=== PATIENT | male | born 1985 | race Two or more races ===

== ENCOUNTER 2022-07-08 09:30 | Inpatient (IN) | payer MEDICAID ==
[~2022-07-08] VITALS: Ht 172.7 cm; Wt 89.8 kg
[2022-07-08] MEDS ORDERED: NALOXONE HCL 0.4 MG/ML 1ML VIAL IV PRN (09:45)
[2022-07-08] MEDS ORDERED: SODIUM CHLORIDE 0.9% 1,000 ML IV ONE (09:45)
[2022-07-08 11:16] LABS: BG BASE EXCESS -4.3 mmol/L (-2.0-2.0); BG DEOXYHEMOGLOBIN 14.5 % (0.0-5.0); BG FRACTION INSPIRED OXYGEN 21; BG HCO3 ACT 23.7 mmol/L (22.0-26.0); BG METHEMOGLOBIN 0.3 % (0.0-1.5); BG OXYGEN SATURATION 85.3 % (92.0-98.5); BG OXYHEMOGLOBIN 84.2 % (94.0-97.0); BG PCO2 54.2 mmHg (35.0-45.0); BG PH 7.258 (7.350-7.450); BG PO2 55.2 mmHg (75.0-100.0); BG TOTAL HEMOGLOBIN 16.3 g/dL (12.0-18.0); BG VENT MODE ROOM AIR
[2022-07-08] MEDS ORDERED: AMPICILLIN SOD/SULBACTAM NA 3 G in SODIUM CHLORIDE 0.9% 100 ML IV STA (12:55)
[2022-07-08 13:48] LABS: HEMATOCRIT. 46.1 % (42.0-52.0); HEMOGLOBIN. 15.3 g/dL (14.0-18.0); MEAN CORPUSCULAR HEMOGLOBIN 28.9 pg (28.0-32.0); MEAN CORPUSCULAR VOLUME 87.3 fL (80.0-94.0); PLATELET 302 x1000/uL (130-400); RED BLOOD CELL COUNT 5.27 mill/uL (4.7-6.1); RED CELL DISTRIBUTION WIDTH 12.6 % (11.6-14.6)
[2022-07-08 13:57] LABS: CHLORIDE 105 mEq/L (98-107)
[2022-07-08] MEDS ORDERED: DOCUSATE SODIUM 100MG CAPSULE PO PRN (14:00)
[2022-07-08] MEDS ORDERED: CEFTRIAXONE 1 G PREMIX 50 ML IV NR (14:00)
[2022-07-08] MEDS ORDERED: NALOXONE HCL 0.4MG/ML VIAL IV PRN (14:00)
[2022-07-08] MEDS ORDERED: HYDROCODONE/ACETAMINOPHEN 5/325MG TABLET PO PRN (14:00)
[2022-07-08] MEDS ORDERED: IPRATROPIUM/ALBUTEROL 0.5-3(2.5)MG/3ML NEB HHN PRN (14:00)
[2022-07-08] MEDS ORDERED: ENOXAPARIN 40MG/0.4ML SYR SUBCUT SCH (14:00)
[2022-07-08] MEDS ORDERED: AZITHROMYCIN 500MG/250ML 250 ML IV NR (14:00)
[2022-07-08] MEDS ORDERED: MAGNESIUM/ALUMINUM HYDROXIDE/SIMETHICONE 30ML UDC PO PRN (14:00)
[2022-07-08] MEDS ORDERED: GUAIFENESIN 200MG/10ML SUGAR FREE UDC PO PRN (14:00)
[2022-07-08] MEDS ORDERED: ONDANSETRON HCL 4MG/2ML INJ IV PRN (14:00)
[2022-07-08 14:12] LABS: CREATINE KINASE 165 IU/L (39-308); ETHANOL BLOOD < 10 mg/dL
[2022-07-08 14:15] LABS: PLATELET ESTIMATE NORMAL
[2022-07-08 14:16] LABS: CLARITY URINE CLEAR (CLEAR); COLOR URINE YELLOW (YELLOW); KETONES URINE NEGATIVE (NEGATIVE); LEUKOCYTE ESTERASE URINE NEGATIVE (NEGATIVE); NITRITE URINE NEGATIVE (NEGATIVE); OCCULT BLOOD URINE NEGATIVE (NEGATIVE); PH URINE 5.5 (4.5-8.0); PROTEIN URINE 2+ (NEGATIVE); SPECIFIC GRAVITY URINE 1.021 (1.005-1.030); UROBILINOGEN URINE 0.2 E.U./dL (0.2-1.0)
[2022-07-08 14:33] LABS: *AMPHETAMINES SCREEN URINE NEGATIVE (NEGATIVE); *BARBITURATES SCREEN URINE NEGATIVE (NEGATIVE); *BENZODIAZEPINES SCREEN URINE NEGATIVE (NEGATIVE); *COCAINE SCREEN URINE NEGATIVE (NEGATIVE); CANNABINOID URINE SCREEN NEGATIVE (NEGATIVE); METHADONE URINE SCREEN NEGATIVE (NEGATIVE); OPIATES URINE SCREEN NEGATIVE (NEGATIVE); PHENCYCLIDINE URINE SCREEN NEGATIVE (NEGATIVE)
[2022-07-08 16:00] VITALS: BP 125/80
[2022-07-08 18:00] VITALS: BP 135/75
[2022-07-08] MEDS: PANTOPRAZOLE SODIUM 40 MG/VIAL IV SCH (18:07)
[2022-07-08] MEDS: ENOXAPARIN 30MG/0.3ML SYR SUBCUT SCH (18:07)
[2022-07-08 20:03] VITALS: BP 138/79
[2022-07-08] MEDS ORDERED: ALBUTEROL (0.083%) 2.5MG/3ML NEB HHN PRN (20:30)
[2022-07-08] MEDS ORDERED: IPRATROPIUM BROMIDE (0.02%) 0.5MG/2.5ML NEB HHN PRN (20:30)
[2022-07-09] VITALS (72 sets, daily range): BP systolic 94–168; BP diastolic 30–101
[2022-07-09] MEDS ORDERED: PROPOFOL 10MG/ML 100ML 100 ML IV PRN (03:30)
[2022-07-09] MEDS ORDERED: LORAZEPAM 2MG/ML CPJ IV NR (03:30)
[2022-07-09] MEDS ORDERED: LORAZEPAM 2MG/ML CPJ IV PRN ×2 (05:00→07:15)
[2022-07-09 05:46] LABS: BG BASE EXCESS -4.5 mmol/L (-2.0-2.0); BG CARBOXYHEMOGLOBIN 0.6 % (0.5-1.5); BG DEOXYHEMOGLOBIN 0.4 % (0.0-5.0); BG FRACTION INSPIRED OXYGEN 100; BG HCO3 ACT 21.7 mmol/L (22.0-26.0); BG METHEMOGLOBIN 0.4 % (0.0-1.5); BG OXYGEN SATURATION 99.6 % (92.0-98.5); BG OXYHEMOGLOBIN 98.6 % (94.0-97.0); BG PCO2 44.1 mmHg (35.0-45.0); BG PO2 449.2 mmHg (75.0-100.0); BG SAMPLE SITE RIGHT RADIAL; BG VENT MODE VENT - AC
[2022-07-09 06:35] LABS: *AMPHETAMINES SCREEN URINE NEGATIVE (NEGATIVE); *BARBITURATES SCREEN URINE NEGATIVE (NEGATIVE); *BENZODIAZEPINES SCREEN URINE NEGATIVE (NEGATIVE); *COCAINE SCREEN URINE NEGATIVE (NEGATIVE); CANNABINOID URINE SCREEN NEGATIVE (NEGATIVE); METHADONE URINE SCREEN NEGATIVE (NEGATIVE); OPIATES URINE SCREEN NEGATIVE (NEGATIVE); PHENCYCLIDINE URINE SCREEN NEGATIVE (NEGATIVE)
[2022-07-09] MEDS ORDERED: MIDAZOLAM HCL 2 MG/2 ML VIAL IV SCH (07:15)
[2022-07-09] MEDS ORDERED: LEVETIRACETAM 500 MG in SODIUM CHLORIDE 0.9% 100 ML IV SCH (07:30)
[2022-07-09] MEDS ORDERED: ETOMIDATE 2MG/ML 10ML VIAL IV ONE (07:53)
[2022-07-09] MEDS ORDERED: LIDOCAINE HCL 1% 30ML VIAL (10MG/ML) ONE (08:05)
[2022-07-09] MEDS ORDERED: NALOXONE HCL 0.4 MG/ML 1ML VIAL ONE (08:22)
[2022-07-09] MEDS ORDERED: EPINEPHRINE 0.1MG/ML (1:10,000) 10ML SYR ONE (08:22)
[2022-07-09] MEDS: PANTOPRAZOLE SODIUM 40 MG/VIAL IV SCH (08:56)
[2022-07-09] MEDS: LEVETIRACETAM 500MG PREMIX 100 ML IV SCH ×2 (08:56→21:30)
[2022-07-09] MEDS: ENOXAPARIN 30MG/0.3ML SYR SUBCUT SCH ×2 (08:57→17:40)
[2022-07-09] MEDS: PROPOFOL 10MG/ML 100ML 100 ML IV PRN ×2 (10:44→17:40)
[2022-07-09] MEDS: LACTATED RINGERS 1,000 ML IV SCH ×2 (12:07→17:41)
[2022-07-09] MEDS: CEFTRIAXONE 1,000 MG in DEXTROSE 5% WATER 50 ML IV SCH (12:07)
[2022-07-09] MEDS: LORAZEPAM 2MG/ML CPJ IV PRN ×2 (12:42→17:51)
[2022-07-09 13:12] LABS: HEMATOCRIT. 43.8 % (42.0-52.0); HEMOGLOBIN. 14.7 g/dL (14.0-18.0); MEAN CORPUSCULAR HEMOGLOBIN 29.3 pg (28.0-32.0); MEAN CORPUSCULAR VOLUME 87.7 fL (80.0-94.0); MEAN PLATELET VOLUME 8.7 fl (7.4-10.4); PLATELET 241 x1000/uL (130-400)
[2022-07-09 13:27] LABS: CHLORIDE 101 mEq/L (98-107)
[2022-07-09 13:31] LABS: PLATELET ESTIMATE NORMAL
[2022-07-09 13:37] LABS: HDL CHOLESTEROL 50 mg/dL (40-59); LDL CHOLESTEROL 89 mg/dL (5-100)
[2022-07-09] MEDS: AZITHROMYCIN 500MG in DEXTROSE 5% WATER 250ML IV SCH (13:51)
[2022-07-09] MEDS ORDERED: IOHEXOL-350 100 ML BOTTLE ONE (14:06)
[2022-07-09] MEDS: IPRATROPIUM/ALBUTEROL 0.5-3(2.5)MG/3ML NEB HHN SCH ×2 (14:06→20:34)
[2022-07-09 14:51] LABS: CLARITY URINE TURBID (CLEAR); COLOR URINE ORANGE (YELLOW); KETONES URINE TRACE (NEGATIVE); LEUKOCYTE ESTERASE URINE 1+ (NEGATIVE); NITRITE URINE NEGATIVE (NEGATIVE); OCCULT BLOOD URINE 3+ (NEGATIVE); PH URINE 5.5 (4.5-8.0); PROTEIN URINE TRACE (NEGATIVE); SPECIFIC GRAVITY URINE 1.025 (1.005-1.030)
[2022-07-09] MEDS: LACTULOSE 20G/30ML UDC PO SCH ×2 (14:56→22:18)
[2022-07-10] VITALS (89 sets, daily range): BP systolic 112–170; BP diastolic 57–107
[2022-07-10] MEDS: LACTATED RINGERS 1,000 ML IV SCH ×3 (00:35→18:10)
[2022-07-10] MEDS: IPRATROPIUM/ALBUTEROL 0.5-3(2.5)MG/3ML NEB HHN SCH ×4 (02:10→20:06)
[2022-07-10] MEDS: PROPOFOL 10MG/ML 100ML 100 ML IV PRN ×3 (03:48→18:51)
[2022-07-10] MEDS: LACTULOSE 20G/30ML UDC PO SCH ×3 (06:07→21:19)
[2022-07-10] MEDS: ENOXAPARIN 30MG/0.3ML SYR SUBCUT SCH ×2 (06:09→18:09)
[2022-07-10 07:04] LABS: CHLORIDE 105 mEq/L (98-107)
[2022-07-10 07:15] LABS: PHOSPHORUS 2.1 mg/dL (2.5-4.9)
[2022-07-10 08:39] LABS: BG BASE EXCESS 0.8 mmol/L (-2.0-2.0); BG CARBOXYHEMOGLOBIN 0.7 % (0.5-1.5); BG DEOXYHEMOGLOBIN 2.8 % (0.0-5.0); BG FRACTION INSPIRED OXYGEN 40; BG HCO3 ACT 23.7 mmol/L (22.0-26.0); BG METHEMOGLOBIN 0.2 % (0.0-1.5); BG OXYGEN SATURATION 97.2 % (92.0-98.5); BG OXYHEMOGLOBIN 96.3 % (94.0-97.0); BG PCO2 32.8 mmHg (35.0-45.0); BG PH 7.476 (7.350-7.450); BG PO2 90.7 mmHg (75.0-100.0); BG SAMPLE SITE RIGHT RADIAL; BG TOTAL HEMOGLOBIN 13.8 g/dL (12.0-18.0); BG VENT MODE VENT - AC
[2022-07-10] MEDS: LEVETIRACETAM 500MG PREMIX 100 ML IV SCH ×2 (09:44→21:19)
[2022-07-10] MEDS: PANTOPRAZOLE SODIUM 40 MG/VIAL IV SCH (09:44)
[2022-07-10 10:04] LABS: BASOPHILS % 0.4 % (0.0-2.0); EOSINOPHILS % 0.9 % (0.0-5.0); HEMATOCRIT. 38.5 % (42.0-52.0); LYMPHOCYTES % 8.3 % (20.0-50.0); MEAN CORPUSCULAR HEMOGLOBIN 29.3 pg (28.0-32.0); MEAN CORPUSCULAR VOLUME 86.8 fL (80.0-94.0); MEAN PLATELET VOLUME 9.4 fl (7.4-10.4); MONOCYTES % 5.4 % (2.0-8.0); PLATELET 229 x1000/uL (130-400); RED BLOOD CELL COUNT 4.43 mill/uL (4.7-6.1)
[2022-07-10] MEDS: CEFTRIAXONE 1,000 MG in DEXTROSE 5% WATER 50 ML IV SCH (11:46)
[2022-07-10] MEDS: AZITHROMYCIN 500MG in DEXTROSE 5% WATER 250ML IV SCH (12:54)
[2022-07-10] MEDS ORDERED: METRONIDAZOLE 50MG/ML 1ML ORAL SYR(NEO) PO SCH (13:00)
[2022-07-10] MEDS: METRONIDAZOLE 500MG TABLET PO SCH ×2 (15:51→21:19)
[2022-07-10] MEDS: ACETAMINOPHEN 325MG TABLET PO PRN (15:59)
[2022-07-10] MEDS: CEFEPIME 2,000 MG in DEXT 5% WATER 100 ML IV SCH (18:09)
[2022-07-11] VITALS (54 sets, daily range): BP systolic 137–206; BP diastolic 64–117
[2022-07-11] MEDS: IPRATROPIUM/ALBUTEROL 0.5-3(2.5)MG/3ML NEB HHN SCH ×3 (01:59→20:13)
[2022-07-11] MEDS: PROPOFOL 10MG/ML 100ML 100 ML IV PRN ×2 (02:53→08:26)
[2022-07-11] MEDS: CEFEPIME 2,000 MG in DEXT 5% WATER 100 ML IV SCH (05:32)
[2022-07-11] MEDS: LACTULOSE 20G/30ML UDC PO SCH ×3 (05:32→21:06)
[2022-07-11] MEDS: ENOXAPARIN 30MG/0.3ML SYR SUBCUT SCH ×2 (05:33→17:17)
[2022-07-11] MEDS: METRONIDAZOLE 500MG TABLET PO SCH (05:33)
[2022-07-11] MEDS: ACETAMINOPHEN 325MG TABLET PO PRN ×4 (05:33→21:20)
[2022-07-11 05:35] LABS: HEMATOCRIT. 39.3 % (42.0-52.0); HEMOGLOBIN. 13.4 g/dL (14.0-18.0); MEAN CORPUSCULAR HEMOGLOBIN 29.8 pg (28.0-32.0); MEAN CORPUSCULAR VOLUME 87.6 fL (80.0-94.0); MEAN PLATELET VOLUME 8.6 fl (7.4-10.4); PLATELET 250 x1000/uL (130-400); RED BLOOD CELL COUNT 4.48 mill/uL (4.7-6.1); RED CELL DISTRIBUTION WIDTH 12.7 % (11.6-14.6)
[2022-07-11] MEDS: CLONIDINE 0.1MG TABLET PO PRN ×2 (06:44→21:06)
[2022-07-11 06:50] LABS: CHLORIDE 101 mEq/L (98-107)
[2022-07-11] MEDS ORDERED: LABETALOL 5MG/ML SYR 20 MG/4 ML SYRINGE IV NR (06:57)
[2022-07-11] MEDS ORDERED: IBUPROFEN 400MG TABLET PO NR (07:00)
[2022-07-11] MEDS: LACTATED RINGERS 1,000 ML IV SCH ×2 (07:22→22:12)
[2022-07-11] MEDS: PANTOPRAZOLE SODIUM 40 MG/VIAL IV SCH (08:26)
[2022-07-11] MEDS ORDERED: KCL 20MEQ/100ML PREMIX 100 ML IV NR (09:00)
[2022-07-11 09:02] LABS: BG BASE EXCESS 0.2 mmol/L (-2.0-2.0); BG CARBOXYHEMOGLOBIN 0.3 % (0.5-1.5); BG DEOXYHEMOGLOBIN 4.7 % (0.0-5.0); BG FRACTION INSPIRED OXYGEN 40; BG METHEMOGLOBIN 0.1 % (0.0-1.5); BG OXYGEN SATURATION 95.3 % (92.0-98.5); BG OXYHEMOGLOBIN 94.9 % (94.0-97.0); BG PCO2 32.1 mmHg (35.0-45.0); BG PH 7.474 (7.350-7.450); BG PO2 75.9 mmHg (75.0-100.0); BG SAMPLE SITE RIGHT RADIAL; BG TOTAL HEMOGLOBIN 13.4 g/dL (12.0-18.0); BG VENT MODE VENT - AC
[2022-07-11] MEDS: LEVETIRACETAM 500MG PREMIX 100 ML IV SCH ×2 (10:06→21:06)
[2022-07-11] MEDS ORDERED: MIDAZOLAM 100MG/100ML PMX 100 ML IV PRN (11:00)
[2022-07-11] MEDS: AMLODIPINE 5MG TABLET PO SCH (12:17)
[2022-07-11 12:20] LABS: PHOSPHORUS 2.1 mg/dL (2.5-4.9)
[2022-07-11] MEDS: AZITHROMYCIN 500MG in DEXTROSE 5% WATER 250ML IV SCH (12:24)
[2022-07-11] MEDS: PIPERACILLIN/TAZOBACTAM 3.375 G in DEXTROSE 5% WATER 50 ML IV SCH ×2 (13:28→21:05)
[2022-07-11] MEDS ORDERED: THIAMINE HCL 100 MG in SODIUM CHLORIDE 0.9% 49 ML IV NR (13:30)
[2022-07-11 14:28] LABS: PLATELET ESTIMATE NORMAL
[2022-07-11 15:50] LABS: CLARITY URINE CLEAR (CLEAR); COLOR URINE YELLOW (YELLOW); KETONES URINE NEGATIVE (NEGATIVE); LEUKOCYTE ESTERASE URINE NEGATIVE (NEGATIVE); NITRITE URINE NEGATIVE (NEGATIVE); OCCULT BLOOD URINE TRACE (NEGATIVE); PH URINE 7.5 (4.5-8.0); PROTEIN URINE NEGATIVE (NEGATIVE); SPECIFIC GRAVITY URINE 1.014 (1.005-1.030)
[2022-07-11] MEDS ORDERED: PROPOFOL 10MG/ML 100ML 100 ML IV PRN (16:15)
[2022-07-11 16:55] LABS: BASOPHILS % 0.6 % (0.0-2.0); HEMATOCRIT. 39.6 % (42.0-52.0); HEMOGLOBIN. 13.4 g/dL (14.0-18.0); LYMPHOCYTES % 9.7 % (20.0-50.0); MEAN CORPUSCULAR HEMOGLOBIN 29.5 pg (28.0-32.0); MEAN PLATELET VOLUME 8.9 fl (7.4-10.4); MONOCYTES % 8.7 % (2.0-8.0); PLATELET 242 x1000/uL (130-400); RED BLOOD CELL COUNT 4.55 mill/uL (4.7-6.1); RED CELL DISTRIBUTION WIDTH 12.9 % (11.6-14.6)
[2022-07-11] MEDS: MIDAZOLAM HCL 100 MG in SODIUM CHLORIDE 0.9% 100 ML IV PRN (17:14)
[2022-07-11 17:20] LABS: CHLORIDE 114 mEq/L (98-107)
[2022-07-11 17:28] LABS: PHOSPHORUS 2.9 mg/dL (2.5-4.9)
[2022-07-11] MEDS ORDERED: SODIUM PHOS,M-BASIC-D-BASIC 15 MM in DEXT 5% WATER 245 ML IV NR (17:30)
[2022-07-11] MEDS: HYDRALAZINE 20MG/ML VIAL IV PRN (19:28)
[2022-07-12] VITALS (53 sets, daily range): BP systolic 85–206; BP diastolic 33–120
[2022-07-12] MEDS: HYDRALAZINE 20MG/ML VIAL IV PRN (00:09)
[2022-07-12] MEDS: IPRATROPIUM/ALBUTEROL 0.5-3(2.5)MG/3ML NEB HHN SCH ×4 (01:41→19:50)
[2022-07-12] MEDS: LABETALOL 5MG/ML SYR 20 MG/4 ML SYRINGE IV PRN (01:57)
[2022-07-12] MEDS: ENOXAPARIN 30MG/0.3ML SYR SUBCUT SCH ×2 (05:44→17:43)
[2022-07-12] MEDS: LACTULOSE 20G/30ML UDC PO SCH (05:44)
[2022-07-12] MEDS: PIPERACILLIN/TAZOBACTAM 3.375 G in DEXTROSE 5% WATER 50 ML IV SCH ×3 (05:44→22:13)
[2022-07-12 06:03] LABS: BASOPHILS % 0.1 % (0.0-2.0); HEMATOCRIT. 41.5 % (42.0-52.0); HEMOGLOBIN. 14.2 g/dL (14.0-18.0); LYMPHOCYTES % 8.6 % (20.0-50.0); MEAN CORPUSCULAR HEMOGLOBIN 29.6 pg (28.0-32.0); MEAN CORPUSCULAR VOLUME 86.7 fL (80.0-94.0); MEAN PLATELET VOLUME 8.3 fl (7.4-10.4); MONOCYTES % 8.9 % (2.0-8.0); NEUTROPHILS % 82.4 % (40.0-76.0); PLATELET 289 x1000/uL (130-400); RED BLOOD CELL COUNT 4.78 mill/uL (4.7-6.1); RED CELL DISTRIBUTION WIDTH 13.1 % (11.6-14.6)
[2022-07-12 06:32] LABS: CHLORIDE 109 mEq/L (98-107)
[2022-07-12] MEDS: MIDAZOLAM HCL 100 MG in SODIUM CHLORIDE 0.9% 100 ML IV PRN (06:41)
[2022-07-12] MEDS: AMLODIPINE 5MG TABLET PO SCH (09:00)
[2022-07-12] MEDS: LEVETIRACETAM 500MG PREMIX 100 ML IV SCH ×2 (09:09→22:13)
[2022-07-12] MEDS: PANTOPRAZOLE SODIUM 40 MG/VIAL IV SCH (09:09)
[2022-07-12] MEDS: KCL 20MEQ/100ML PREMIX 100 ML IV SCH ×2 (09:12→11:00)
[2022-07-12 09:14] LABS: BG BASE EXCESS -0.3 mmol/L (-2.0-2.0); BG CARBOXYHEMOGLOBIN 0.7 % (0.5-1.5); BG DEOXYHEMOGLOBIN 1.4 % (0.0-5.0); BG FRACTION INSPIRED OXYGEN 40; BG HCO3 ACT 21.2 mmol/L (22.0-26.0); BG METHEMOGLOBIN 0.3 % (0.0-1.5); BG OXYGEN SATURATION 98.6 % (92.0-98.5); BG OXYHEMOGLOBIN 97.6 % (94.0-97.0); BG PCO2 26.8 mmHg (35.0-45.0); BG PH 7.517 (7.350-7.450); BG PO2 133.3 mmHg (75.0-100.0); BG SAMPLE SITE RIGHT BRACHIAL; BG TOTAL HEMOGLOBIN 13.4 g/dL (12.0-18.0); BG VENT MODE VENT - AC
[2022-07-12] MEDS: NOREPINEPHRINE 8 MG in DEXT 5% WATER 242 ML IV PRN (14:09)
[2022-07-12] MEDS: AZITHROMYCIN 500MG in DEXTROSE 5% WATER 250ML IV SCH (15:16)
[2022-07-12] MEDS: LACTATED RINGERS 1,000 ML IV SCH ×2 (15:16→22:14)
[2022-07-13] VITALS (94 sets, daily range): BP systolic 82–128; BP diastolic 38–84
[2022-07-13] MEDS: IPRATROPIUM/ALBUTEROL 0.5-3(2.5)MG/3ML NEB HHN SCH ×3 (02:03→20:36)
[2022-07-13] MEDS: NOREPINEPHRINE 8 MG in DEXT 5% WATER 242 ML IV PRN ×2 (04:47→18:25)
[2022-07-13 05:43] LABS: BASOPHILS % 0.6 % (0.0-2.0); EOSINOPHILS % 2.6 % (0.0-5.0); HEMOGLOBIN. 15.1 g/dL (14.0-18.0); LYMPHOCYTES % 9.7 % (20.0-50.0); MEAN CORPUSCULAR HEMOGLOBIN 29.9 pg (28.0-32.0); MEAN CORPUSCULAR VOLUME 88.9 fL (80.0-94.0); MEAN PLATELET VOLUME 8.2 fl (7.4-10.4); MONOCYTES % 9.6 % (2.0-8.0); NEUTROPHILS % 77.5 % (40.0-76.0); PLATELET 316 x1000/uL (130-400); RED BLOOD CELL COUNT 5.06 mill/uL (4.7-6.1); RED CELL DISTRIBUTION WIDTH 13.2 % (11.6-14.6)
[2022-07-13] MEDS: PIPERACILLIN/TAZOBACTAM 3.375 G in DEXTROSE 5% WATER 50 ML IV SCH ×3 (07:00→21:00)
[2022-07-13] MEDS: ENOXAPARIN 30MG/0.3ML SYR SUBCUT SCH ×2 (07:00→18:21)
[2022-07-13 08:09] LABS: *CREATININE RANDOM URINE 56.5 mg/dL (Not Estab.); MICROALBUMIN RANDOM URINE 3.4 ug/mL (Not Estab.)
[2022-07-13] MEDS: PANTOPRAZOLE SODIUM 40 MG/VIAL IV SCH (09:21)
[2022-07-13] MEDS: LEVETIRACETAM 500MG PREMIX 100 ML IV SCH ×2 (09:21→21:00)
[2022-07-13 09:55] LABS: CHLORIDE 135 mEq/L (98-107)
[2022-07-13 10:02] LABS: PHOSPHORUS 3.6 mg/dL (2.5-4.9)
[2022-07-13] MEDS ORDERED: KCL 20MEQ/100ML PREMIX 100 ML IV ONE (10:45)
[2022-07-13] MEDS: KCL 20MEQ/100ML PREMIX 100 ML IV SCH ×5 (11:00→22:04)
[2022-07-13] MEDS: LACTATED RINGERS 1,000 ML IV SCH (11:23)
[2022-07-13 12:09] LABS: BG CARBOXYHEMOGLOBIN 0.3 % (0.5-1.5); BG DEOXYHEMOGLOBIN 3.2 % (0.0-5.0); BG FRACTION INSPIRED OXYGEN 35; BG METHEMOGLOBIN 0.3 % (0.0-1.5); BG OXYGEN SATURATION 96.8 % (92.0-98.5); BG OXYHEMOGLOBIN 96.2 % (94.0-97.0); BG PCO2 49.7 mmHg (35.0-45.0); BG PH 7.302 (7.350-7.450); BG PO2 98.8 mmHg (75.0-100.0); BG SAMPLE SITE RIGHT RADIAL; BG TOTAL HEMOGLOBIN 17.4 g/dL (12.0-18.0); BG VENT MODE VENT - AC
[2022-07-13 16:43] LABS: CHLORIDE 140 mEq/L (98-107)
[2022-07-13] MEDS ORDERED: DEXT 5%/0.45% NACL 500ML 1,000 ML IV ONE (17:15)
[2022-07-13] MEDS ORDERED: KCL 20MEQ/100ML PREMIX 100 ML IV SCH (17:30)
[2022-07-13 18:50] LABS: HEMATOCRIT 47.5 % (42.0-52.0); HEMOGLOBIN 15.3 g/dL (14.0-18.0); MEAN CORPUSCULAR HEMOGLOBIN 28.8 pg (28.0-32.0); MEAN CORPUSCULAR VOLUME 89.2 fL (80.0-94.0); PLATELET 327 x1000/uL (130-400); RED BLOOD CELL COUNT 5.32 mill/uL (4.7-6.1); RED CELL DISTRIBUTION WIDTH 13.8 % (11.6-14.6)
[2022-07-13 19:09] LABS: T4 FREE 0.9 ng/dL (0.76-1.46)
[2022-07-13 20:34] LABS: CHLORIDE 141 mEq/L (98-107)
[2022-07-14] VITALS (97 sets, daily range): BP systolic 76–148; BP diastolic 38–85
[2022-07-14] MEDS: KCL 20MEQ/100ML PREMIX 100 ML IV SCH ×2 (00:07→02:39)
[2022-07-14] MEDS: IPRATROPIUM/ALBUTEROL 0.5-3(2.5)MG/3ML NEB HHN SCH ×3 (01:22→12:46)
[2022-07-14 05:41] LABS: BASOPHILS % 0.3 % (0.0-2.0); EOSINOPHILS % 5.7 % (0.0-5.0); HEMATOCRIT. 44.5 % (42.0-52.0); HEMOGLOBIN. 14.6 g/dL (14.0-18.0); LYMPHOCYTES % 11.9 % (20.0-50.0); MEAN CORPUSCULAR HEMOGLOBIN 29.2 pg (28.0-32.0); MEAN CORPUSCULAR VOLUME 89.3 fL (80.0-94.0); MEAN PLATELET VOLUME 8.6 fl (7.4-10.4); MONOCYTES % 9.5 % (2.0-8.0); NEUTROPHILS % 72.6 % (40.0-76.0); PLATELET 300 x1000/uL (130-400); RED BLOOD CELL COUNT 4.98 mill/uL (4.7-6.1); RED CELL DISTRIBUTION WIDTH 13.8 % (11.6-14.6)
[2022-07-14] MEDS: PIPERACILLIN/TAZOBACTAM 3.375 G in DEXTROSE 5% WATER 50 ML IV SCH ×3 (05:54→22:49)
[2022-07-14] MEDS: ENOXAPARIN 30MG/0.3ML SYR SUBCUT SCH (05:54)
[2022-07-14] MEDS: NOREPINEPHRINE 8 MG in DEXT 5% WATER 242 ML IV PRN ×3 (05:56→20:50)
[2022-07-14 06:07] LABS: PHOSPHORUS 5.1 mg/dL (2.5-4.9)
[2022-07-14] MEDS ORDERED: DEXT 5%/0.45% NACL 1000ML 1,000 ML IV SCH (06:35)
[2022-07-14] MEDS: LEVETIRACETAM 500MG PREMIX 100 ML IV SCH ×2 (08:38→20:50)
[2022-07-14] MEDS: DEXTROSE 5% WATER 1,000 ML IV SCH ×4 (08:38→23:50)
[2022-07-14] MEDS: PANTOPRAZOLE SODIUM 40 MG/VIAL IV SCH (08:38)
[2022-07-14 09:14] LABS: BG BASE EXCESS -6.2 mmol/L (-2.0-2.0); BG CARBOXYHEMOGLOBIN 0.3 % (0.5-1.5); BG DEOXYHEMOGLOBIN 4.4 % (0.0-5.0); BG FRACTION INSPIRED OXYGEN 30; BG HCO3 ACT 22.6 mmol/L (22.0-26.0); BG METHEMOGLOBIN 0.3 % (0.0-1.5); BG OXYGEN SATURATION 95.6 % (92.0-98.5); BG PCO2 58.4 mmHg (35.0-45.0); BG PH 7.206 (7.350-7.450); BG PO2 91.4 mmHg (75.0-100.0); BG SAMPLE SITE RIGHT RADIAL; BG TOTAL HEMOGLOBIN 14.9 g/dL (12.0-18.0); BG TOTAL RESPIRATORY RATE 16 b/min; BG VENT MODE VENT - AC
[2022-07-14] MEDS: DESMOPRESSIN ACETATE 4MCG/ML AMP IV SCH ×3 (10:45→22:51)
[2022-07-14 11:46] LABS: BG BASE EXCESS -4.8 mmol/L (-2.0-2.0); BG CARBOXYHEMOGLOBIN 0.9 % (0.5-1.5); BG DEOXYHEMOGLOBIN 3.9 % (0.0-5.0); BG FRACTION INSPIRED OXYGEN 30; BG HCO3 ACT 22.3 mmol/L (22.0-26.0); BG METHEMOGLOBIN 0.4 % (0.0-1.5); BG OXYHEMOGLOBIN 94.8 % (94.0-97.0); BG PCO2 49.2 mmHg (35.0-45.0); BG PH 7.275 (7.350-7.450); BG PO2 86.7 mmHg (75.0-100.0); BG SAMPLE SITE RIGHT RADIAL; BG TOTAL HEMOGLOBIN 14.1 g/dL (12.0-18.0); BG VENT MODE VENT - AC
[2022-07-14 12:29] LABS: BG CARBOXYHEMOGLOBIN 0.6 % (0.5-1.5); BG DEOXYHEMOGLOBIN 0.7 % (0.0-5.0); BG FRACTION INSPIRED OXYGEN 100; BG METHEMOGLOBIN 0.3 % (0.0-1.5); BG OXYGEN SATURATION 99.3 % (92.0-98.5); BG OXYHEMOGLOBIN 98.4 % (94.0-97.0); BG PCO2 43.6 mmHg (35.0-45.0); BG PH 7.321 (7.350-7.450); BG PO2 349.7 mmHg (75.0-100.0); BG SAMPLE SITE LEFT RADIAL; BG TOTAL HEMOGLOBIN 13.9 g/dL (12.0-18.0); BG VENT MODE VENT - AC
[2022-07-14] MEDS ORDERED: DESMOPRESSIN ACETATE IVPB 1 MCG in SODIUM CHLORIDE 0.9% 50 ML IV SCH (14:00)
[2022-07-15] VITALS (95 sets, daily range): BP systolic 93–213; BP diastolic 46–120
[2022-07-15 06:37] LABS: BASOPHILS % 0.4 % (0.0-2.0); HEMATOCRIT. 37.6 % (42.0-52.0); HEMOGLOBIN. 12.6 g/dL (14.0-18.0); LYMPHOCYTES % 13.2 % (20.0-50.0); MEAN CORPUSCULAR HEMOGLOBIN 29.4 pg (28.0-32.0); MEAN CORPUSCULAR VOLUME 88.1 fL (80.0-94.0); MONOCYTES % 8.8 % (2.0-8.0); NEUTROPHILS % 70.6 % (40.0-76.0); PLATELET 250 x1000/uL (130-400); RED BLOOD CELL COUNT 4.26 mill/uL (4.7-6.1); RED CELL DISTRIBUTION WIDTH 13.6 % (11.6-14.6)
[2022-07-15] MEDS: PIPERACILLIN/TAZOBACTAM 3.375 G in DEXTROSE 5% WATER 50 ML IV SCH ×3 (06:37→21:27)
[2022-07-15] MEDS: ENOXAPARIN 30MG/0.3ML SYR SUBCUT SCH (06:38)
[2022-07-15] MEDS: DESMOPRESSIN ACETATE 4MCG/ML AMP IV SCH ×3 (06:38→22:16)
[2022-07-15] MEDS: NOREPINEPHRINE 8 MG in DEXT 5% WATER 242 ML IV PRN ×2 (06:39→21:27)
[2022-07-15] MEDS: DEXTROSE 5% WATER 1,000 ML IV SCH ×3 (06:48→22:11)
[2022-07-15 08:52] LABS: BG BASE EXCESS -0.5 mmol/L (-2.0-2.0); BG CARBOXYHEMOGLOBIN 0.4 % (0.5-1.5); BG DEOXYHEMOGLOBIN 2.1 % (0.0-5.0); BG FRACTION INSPIRED OXYGEN 40; BG HCO3 ACT 23.7 mmol/L (22.0-26.0); BG METHEMOGLOBIN 0.3 % (0.0-1.5); BG OXYGEN SATURATION 97.9 % (92.0-98.5); BG OXYHEMOGLOBIN 97.2 % (94.0-97.0); BG PCO2 37.4 mmHg (35.0-45.0); BG PH 7.419 (7.350-7.450); BG PO2 111.6 mmHg (75.0-100.0); BG SAMPLE SITE RIGHT RADIAL; BG TOTAL HEMOGLOBIN 13.3 g/dL (12.0-18.0); BG TOTAL RESPIRATORY RATE 24 b/min; BG VENT MODE VENT - AC
[2022-07-15] MEDS: PANTOPRAZOLE SODIUM 40 MG/VIAL IV SCH (09:00)
[2022-07-15] MEDS: LEVETIRACETAM 500MG PREMIX 100 ML IV SCH ×2 (10:29→21:27)
[2022-07-15] MEDS ORDERED: IPRATROPIUM/ALBUTEROL 0.5-3(2.5)MG/3ML NEB HHN PRN (13:15)
[2022-07-15] MEDS ORDERED: DEXTROSE 5% WATER 1,000 ML IV SCH (16:45)
[2022-07-15] MEDS: IPRATROPIUM/ALBUTEROL 0.5-3(2.5)MG/3ML NEB HHN SCH (20:04)
[2022-07-16] VITALS (95 sets, daily range): BP systolic 94–202; BP diastolic 49–133
[2022-07-16] MEDS: IPRATROPIUM/ALBUTEROL 0.5-3(2.5)MG/3ML NEB HHN SCH ×4 (01:21→19:50)
[2022-07-16] MEDS: DEXTROSE 5% WATER 1,000 ML IV SCH ×4 (01:57→18:30)
[2022-07-16] MEDS: PIPERACILLIN/TAZOBACTAM 3.375 G in DEXTROSE 5% WATER 50 ML IV SCH ×3 (05:28→21:02)
[2022-07-16] MEDS: DESMOPRESSIN ACETATE 4MCG/ML AMP IV SCH ×3 (05:29→20:22)
[2022-07-16] MEDS: ENOXAPARIN 30MG/0.3ML SYR SUBCUT SCH (05:30)
[2022-07-16 05:44] LABS: BASOPHILS % 0.2 % (0.0-2.0); HEMATOCRIT. 35.8 % (42.0-52.0); MEAN CORPUSCULAR HEMOGLOBIN 29.3 pg (28.0-32.0); MEAN CORPUSCULAR VOLUME 87.2 fL (80.0-94.0); MEAN PLATELET VOLUME 8.2 fl (7.4-10.4); MONOCYTES % 5.5 % (2.0-8.0); NEUTROPHILS % 78.3 % (40.0-76.0); PLATELET 201 x1000/uL (130-400); RED CELL DISTRIBUTION WIDTH 13.2 % (11.6-14.6)
[2022-07-16 06:04] LABS: PHOSPHORUS 4.3 mg/dL (2.5-4.9)
[2022-07-16] MEDS ORDERED: POTASSIUM CHLORIDE 20MEQ/PACKET NG NR (08:00)
[2022-07-16] MEDS ORDERED: INSULIN REGULAR (HUMULIN R) 300UNITS/3ML VIAL IV NR (08:30)
[2022-07-16] MEDS: PANTOPRAZOLE SODIUM 40 MG/VIAL IV SCH (08:52)
[2022-07-16] MEDS: LEVETIRACETAM 500MG PREMIX 100 ML IV SCH ×2 (08:52→20:22)
[2022-07-16 09:10] LABS: BARBITURATE SCREEN Negative ug/mL (Cutoff:0.1); OPIATES SCREEN Negative ng/mL (Cutoff:5); PHENCYCLIDINE SCREEN Negative ng/mL (Cutoff:8)
[2022-07-16] MEDS: NOREPINEPHRINE 8 MG in DEXT 5% WATER 242 ML IV PRN (09:41)
[2022-07-16 10:06] LABS: BG BASE EXCESS -0.5 mmol/L (-2.0-2.0); BG CARBOXYHEMOGLOBIN 0.3 % (0.5-1.5); BG DEOXYHEMOGLOBIN 1.9 % (0.0-5.0); BG FRACTION INSPIRED OXYGEN 40; BG HCO3 ACT 23.5 mmol/L (22.0-26.0); BG METHEMOGLOBIN 0.1 % (0.0-1.5); BG OXYGEN SATURATION 98.1 % (92.0-98.5); BG OXYHEMOGLOBIN 97.7 % (94.0-97.0); BG PCO2 36.6 mmHg (35.0-45.0); BG PH 7.426 (7.350-7.450); BG PO2 127.5 mmHg (75.0-100.0); BG SAMPLE SITE RIGHT RADIAL; BG TOTAL HEMOGLOBIN 12.4 g/dL (12.0-18.0); BG VENT MODE VENT - AC
[2022-07-16 10:42] LABS: BG CARBOXYHEMOGLOBIN 0.4 % (0.5-1.5); BG DEOXYHEMOGLOBIN 0.5 % (0.0-5.0); BG FRACTION INSPIRED OXYGEN 100; BG HCO3 ACT 21.7 mmol/L (22.0-26.0); BG METHEMOGLOBIN 0.1 % (0.0-1.5); BG OXYGEN SATURATION 99.5 % (92.0-98.5); BG PCO2 33.8 mmHg (35.0-45.0); BG PH 7.425 (7.350-7.450); BG SAMPLE SITE RIGHT RADIAL; BG TOTAL HEMOGLOBIN 12.5 g/dL (12.0-18.0); BG VENT MODE VENT - AC
[2022-07-16] MEDS ORDERED: INSULIN LISPRO 100 UNITS/ML SUBCUT NR (10:45)
[2022-07-16 11:05] LABS: BG BASE EXCESS 0.6 mmol/L (-2.0-2.0); BG CARBOXYHEMOGLOBIN 0.6 % (0.5-1.5); BG DEOXYHEMOGLOBIN 0.5 % (0.0-5.0); BG FRACTION INSPIRED OXYGEN 100; BG HCO3 ACT 25.1 mmol/L (22.0-26.0); BG METHEMOGLOBIN 0.1 % (0.0-1.5); BG OXYGEN SATURATION 99.5 % (92.0-98.5); BG OXYHEMOGLOBIN 98.8 % (94.0-97.0); BG PCO2 39.7 mmHg (35.0-45.0); BG PH 7.418 (7.350-7.450); BG PO2 453.5 mmHg (75.0-100.0); BG SAMPLE SITE RIGHT RADIAL; BG TOTAL HEMOGLOBIN 13.1 g/dL (12.0-18.0); BG VENT MODE VENT - AC
[2022-07-16 11:19] LABS: BG CARBOXYHEMOGLOBIN 0.5 % (0.5-1.5); BG DEOXYHEMOGLOBIN 1.9 % (0.0-5.0); BG FRACTION INSPIRED OXYGEN 44; BG HCO3 ACT 28.6 mmol/L (22.0-26.0); BG OXYGEN SATURATION 98.1 % (92.0-98.5); BG OXYHEMOGLOBIN 97.6 % (94.0-97.0); BG PCO2 72.5 mmHg (35.0-45.0); BG PH 7.214 (7.350-7.450); BG PO2 146.5 mmHg (75.0-100.0); BG SAMPLE SITE RIGHT RADIAL; BG TOTAL HEMOGLOBIN 13.6 g/dL (12.0-18.0); BG VENT MODE NASAL CANNULA
[2022-07-16] MEDS: HYDRALAZINE 20MG/ML VIAL IV PRN (19:28)
[2022-07-16] MEDS: LABETALOL 5MG/ML SYR 20 MG/4 ML SYRINGE IV PRN ×2 (19:29→23:15)
[2022-07-17] VITALS (97 sets, daily range): BP systolic 64–133; BP diastolic 38–100
[2022-07-17] MEDS: ACETAMINOPHEN 325MG TABLET PO PRN ×2 (00:45→08:25)
[2022-07-17] MEDS: DESMOPRESSIN ACETATE 4MCG/ML AMP IV SCH (05:24)
[2022-07-17] MEDS: PIPERACILLIN/TAZOBACTAM 3.375 G in DEXTROSE 5% WATER 50 ML IV SCH (05:25)
[2022-07-17] MEDS: ENOXAPARIN 30MG/0.3ML SYR SUBCUT SCH (05:25)
[2022-07-17] MEDS: DEXTROSE 5% WATER 1,000 ML IV SCH (05:40)
[2022-07-17 06:37] LABS: HEMATOCRIT 42.5 % (42.0-52.0); HEMOGLOBIN 14.5 g/dL (14.0-18.0); MEAN CORPUSCULAR HEMOGLOBIN 30.1 pg (28.0-32.0); MEAN CORPUSCULAR VOLUME 88.2 fL (80.0-94.0); RED BLOOD CELL COUNT 4.82 mill/uL (4.7-6.1); RED CELL DISTRIBUTION WIDTH 13.1 % (11.6-14.6)
[2022-07-17] MEDS: PANTOPRAZOLE SODIUM 40 MG/VIAL IV SCH (08:24)
[2022-07-17] MEDS: LEVETIRACETAM 500MG PREMIX 100 ML IV SCH (08:24)
[2022-07-17 08:35] LABS: BG BASE EXCESS -0.4 mmol/L (-2.0-2.0); BG CARBOXYHEMOGLOBIN 0.4 % (0.5-1.5); BG DEOXYHEMOGLOBIN 3.9 % (0.0-5.0); BG FRACTION INSPIRED OXYGEN 40; BG HCO3 ACT 24.9 mmol/L (22.0-26.0); BG METHEMOGLOBIN 0.5 % (0.0-1.5); BG OXYGEN SATURATION 96.1 % (92.0-98.5); BG OXYHEMOGLOBIN 95.2 % (94.0-97.0); BG PCO2 43.1 mmHg (35.0-45.0); BG PH 7.379 (7.350-7.450); BG PO2 84.2 mmHg (75.0-100.0); BG SAMPLE SITE RIGHT RADIAL; BG TOTAL HEMOGLOBIN 15.2 g/dL (12.0-18.0); BG VENT MODE VENT - AC
[2022-07-17] MEDS: IPRATROPIUM/ALBUTEROL 0.5-3(2.5)MG/3ML NEB HHN SCH ×2 (08:48→14:40)
[2022-07-17] MEDS ORDERED: ACETAMINOPHEN 650MG SUPP PR PRN (11:45)
[2022-07-17] MEDS ORDERED: LACTATED RINGERS 1,000 ML IV ONE (12:00)
[2022-07-17] MEDS: PHENYLEPHRINE 100 MG in DEXT 5% WATER 240 ML IV PRN ×2 (12:25→21:19)
[2022-07-17] MEDS ORDERED: PIPERACILLIN/TAZOBACTAM 3.375 G in DEXTROSE 5% WATER 50 ML IV SCH (14:00)
[2022-07-17] MEDS ORDERED: MEROPENEM 1,000 MG in SODIUM CHLORIDE 0.9% 100 ML IV SCH (16:00)
[2022-07-17] MEDS ORDERED: VANCOMYCIN 1000MG/20ML ORAL SOLN PO SCH (18:00)
[2022-07-18] VITALS (77 sets, daily range): BP systolic 79–122; BP diastolic 41–72
[2022-07-18] MEDS: PHENYLEPHRINE 100 MG in DEXT 5% WATER 240 ML IV PRN ×2 (05:42→14:16)
[2022-07-18] MEDS ORDERED: ENOXAPARIN 40MG/0.4ML SYR SUBCUT SCH (09:00)
[2022-07-20 14:08] LABS: 7-AMINOCLONAZEPAM CONFIRM Negative (.); ALPRAZOLAM CONFIRM Negative (.); BENZODIAZEPINE SCREEN ++POSITIVE++ ng/mL (Cutoff:20); CHLORDIAZEPOXIDE CONFIRM Negative (.); CLONAZEPAM CONFIRM Negative (.); DESMETHYLCHLORDIAZEPOXIDE Negative (.); DIAZEPAM CONFIRM Negative (.); FLURAZEPAM CONFIRM Negative (.); LORAZEPAM CONFIRM 47 ng/mL (.); MIDAZOLAM CONFIRM Negative (.); OXAZEPAM CONFIRM Negative (.); TEMAZEPAM CONFIRM Negative (.); TRIAZOLAM CONFIRM Negative (.)
== END 2022-07-19 | DRG 720 ==
LOC: ER 09:30 → EDBD 12:13 → MICUSO 12:13 → EDBEDREQ 12:24 → EDBEDREQTM 12:24 → EDBEDREQ 12:25 → 5EST 16:21 → CVICU 07-09 02:30
PROVIDERS: ADMIT Internal Medicine; ATTEND Internal Medicine
PROC: 5A1955Z Respiratory Ventilation, Greater than 96 Consecutive Hours (ICD-10-PCS; 2022-07-09)
PROC: 0BH17EZ Insertion of Endotracheal Airway into Trachea, Via Natural or Artificial Opening (ICD-10-PCS; 2022-07-09)
PROC: 02HV33Z Insertion of Infusion Device into Superior Vena Cava, Percutaneous Approach (ICD-10-PCS; principal; 2022-07-10)
PROC: B548ZZA Ultrasonography of Superior Vena Cava, Guidance (ICD-10-PCS; 2022-07-10)
PROC: 4A00X4Z Measurement of Central Nervous Electrical Activity, External Approach (ICD-10-PCS; 2022-07-12)
PROC: 5A09357 Assistance with Respiratory Ventilation, Less than 24 Consecutive Hours, Continuous Positive Airway Pressure (ICD-10-PCS; 2022-07-18)
DX: A41.9 Sepsis, unspecified organism (principal); J96.01 Acute respiratory failure with hypoxia; J69.0 Pneumonitis due to inhalation of food and vomit; G92.8 Other toxic encephalopathy; I21.4 Non-ST elevation (NSTEMI) myocardial infarction; E44.0 Moderate protein-calorie malnutrition; J15.0 Pneumonia due to Klebsiella pneumoniae; E87.29 Other acidosis; T40.2X1A Poisoning by other opioids, accidental (unintentional), initial encounter; I46.9 Cardiac arrest, cause unspecified; Z66 Do not resuscitate; Z20.822 Contact with and (suspected) exposure to COVID-19; R56.9 Unspecified convulsions; I16.0 Hypertensive urgency; E87.6 Hypokalemia; I10 Essential (primary) hypertension; R35.89 Other polyuria; N17.9 Acute kidney failure, unspecified; R74.01 Elevation of levels of liver transaminase levels; R73.9 Hyperglycemia, unspecified; Z68.30 Body mass index [BMI] 30.0-30.9, adult; Z79.899 Other long term (current) drug therapy; Z82.49 Family history of ischemic heart disease and other diseases of the circulatory system; Y92.89 Other specified places as the place of occurrence of the external cause
CPT/HCPCS: 31500; 36415; 36573; 36600; 70544; 70553; 71045; 71275; 74018; 74174; 76700; 78610; 80048; 80053; 80061; 80305; 80307; 80320; 80329; 81003; 82043; 82140; 82330; 82375; 82550; 82570; 82805; 82962; 83036; 83605; 83735; 83880; 83935; 84100; 84145; 84300; 84439; 84443; 84478; 84484; 85025; 85027; 85379; 87070; 87077; 87186; 87426; 92950; 93005; 93970; 94002; 94003; 94640; 95816; 99291; A9512; C1725; C1769; C9113; J0295; J0360; J0456; J0692; J0696; J1650; J1815; J1953; J2060; J2185; J2250; J2310; J2370; J2405; J2543; J2597; J2704; J3370; J3411; J3480; J3490; J7030; J7050; J7060; J7070; J7120; Q9967; G0480